=== PATIENT | male | born 1965 | race Two or more races ===

== ENCOUNTER 2018-12-01 20:54 | Emergency (ER) | payer OTHER ==
[~2018-12-01] VITALS: Ht 175.3 cm; Wt 98.2 kg
[2018-12-01] MEDS ORDERED: AMLO5TAB6 PO (21:04)
[2018-12-01 21:36] LABS: BASO # 0.1 10^3/uL (0.0-0.2); BASO % 1.2 % (0.0-1.0); EOS # 0.1 10^3/uL (0.0-0.50); EOS % 2.4 % (0.0-3.0); HEMATOCRIT 39.2 % (42.0-52.0); HEMOGLOBIN 12.9 g/dl (13.5-17.5); LYMPH # 1.7 10^3/uL (1.5-4.5); LYMPH % 35.2 % (24.0-44.0); MEAN CORPUSCULAR HEMOGLOBIN 27.4 pg (27.0-33.0); MEAN CORPUSCULAR HGB CONC 32.9 g/dl (32.0-36.5); MEAN CORPUSCULAR VOLUME 83.4 fl (80.0-96.0); MONO # 0.6 10^3/uL (0.0-0.8); MONO % 11.4 % (0.0-5.0); NEUTROPHILS # 2.4 10^3/uL (1.8-7.7); NEUTROPHILS % 49.4 % (36.0-66.0); PLATELET COUNT, AUTOMATED 189 10^3/uL (150-450); WHITE BLOOD COUNT 4.9 10^3/uL (4.0-10.0)
[2018-12-01 22:02] LABS: BLOOD UREA NITROGEN 16 MG/DL (7-18); CALCIUM LEVEL 7.9 MG/DL (8.5-10.1); CARBON DIOXIDE LEVEL 24 MEQ/L (21-32); CHLORIDE LEVEL 107 MEQ/L (98-107); CK-MB VALUE MASS 1.4 NG/ML (<3.6); CPK CREATINE PHOSPHOKINASE 160 U/L (39-308); CREATININE FOR GFR 1.21 MG/DL (0.70-1.30); GLOMERULAR FILTRATION RATE > 60.0 (>56); GLUCOSE, FASTING 123 MG/DL (70-100); MB/CK RELATIVE INDEX 0.88 (< OR =4); POTASSIUM SERUM 3.6 MEQ/L (3.5-5.1); SODIUM LEVEL 140 MEQ/L (136-145); TROPONIN I < 0.02 NG/ML (< 0.10)
[2018-12-01] MEDS ORDERED: NS 1,000 ML IV ONE (22:45)
[2018-12-01] MEDS ORDERED: KETOROLAC 30 MG/ML VIAL (J1885) IV ONE (22:45)
[2018-12-02 00:30] VITALS: BP 128/68
--- NOTE | 2018-12-02 09:09 | REP ---
Portable chest x-ray: Single view. History: Chest pain. Findings: The lungs are well inflated and clear. Heart size is normal. The aorta is tortuous. Pulmonary vasculature is not increased. EKG monitoring electrodes overlie the chest. There is moderate osteoarthritic change at the glenohumeral articulations bilaterally. Impression: No active cardiopulmonary disease. Electronically Signed by Smith Jones MD 12/02/2018 09:01 A
--- NOTE | 2018-12-04 16:24 | ECGEPIP ---
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
== END 2018-12-02 00:50 | disposition home or self-care (01) ==
LOC: M ED 20:54
DX: R07.89 Other chest pain (principal); R42 Dizziness and giddiness; R06.02 Shortness of breath; I10 Essential (primary) hypertension; Z79.899 Other long term (current) drug therapy
CPT/HCPCS: 36415; 71045; 80048; 82550; 82553; 84484; 85025; 85379; 93005; 93041; 94760; 96361; 96374; 99285; J1885

== ENCOUNTER → 2020-08-29 | Outpatient (CLI) | payer OTHER ==
[~2020-08-29] MED LIST: AMLO1TAB24 PO
--- NOTE | 2020-09-01 07:38 | REP ---
INDICATION: ? ANEURYSM COMPARISON: None TECHNIQUE: Axial noncontrast images from the thoracic inlet to the upper abdomen with coronal and sagittal reformations. This CT examination was performed using the following dose reduction techniques: Automated exposure control, adjustment of mA and/or kv according to the patient's size, and use of iterative reconstruction technique. FINDINGS: The bilateral lung meyer are relatively well aerated, symmetric and essentially clear. Minimal age-related scarring suggested at the bases. There is a 4 mm subpleural nodule along the anterior margin of the right middle lobe (series 201, image 66) which is likely small chronic scar. No acute consolidation, mass, pleural effusion, or pneumothorax. Tracheobronchial tree is patent. No obvious adenopathy noted although evaluation is limited by the lack of intravenous contrast. Ascending thoracic aorta measures 3.5 cm maximal diameter and tapers through the aortic arch and descending thoracic aorta 2 approximately 2.2 cm diameter before traversing the diaphragmatic hiatus. No significant atherosclerotic changes to the aorta or coronary arteries. No cardiomegaly or pericardial effusion. Limited upper abdomen demonstrates normal bilateral adrenal glands. Surrounding musculoskeletal structures are intact and without acute osseous abnormality. IMPRESSION: 1. Ascending thoracic aorta measuring max 3.5 cm diameter tapering to normal through the descending thoracic aorta measuring 2.2 cm maximal diameter. No associated atherosclerotic changes noted. 2. Minimal presumed chronic age-related changes. Small 4 mm subpleural nodule along the anterior right middle lobe likely insignificant. No prior examinations are available for comparison and high risk patients may warrant 12 month follow-up. <Electronically signed by Guru Wolfe > 09/01/20 [id number]
== END ==
LOC: M RAD 15:01
PROVIDERS: ATTEND Family Medicine
DX: I10 Essential (primary) hypertension (principal); K21.9 Gastro-esophageal reflux disease without esophagitis; E78.5 Hyperlipidemia, unspecified; N52.9 Male erectile dysfunction, unspecified; E66.9 Obesity, unspecified; G47.33 Obstructive sleep apnea (adult) (pediatric); F43.10 Post-traumatic stress disorder, unspecified; Z72.0 Tobacco use; R10.9 Unspecified abdominal pain; M19.90 Unspecified osteoarthritis, unspecified site

== ENCOUNTER 2020-11-25 18:37 | Emergency (ER) | payer OTHER ==
[~2020-11-25] VITALS: Ht 175.3 cm; Wt 89.8 kg
[2020-11-25 18:37] VITALS: BP 141/90
== END 2020-11-25 22:13 | disposition left against medical advice (07) ==
LOC: M ED 18:37
DX: Z53.21 Procedure and treatment not carried out due to patient leaving prior to being seen by health care provider (principal)

== ENCOUNTER → 2020-11-26 | Outpatient (CLI) | payer SELFPAY | LOC: M LABSMTC 13:05 | PROVIDERS: ATTEND Pediatrics | DX: Z11.52 Encounter for screening for COVID-19 (principal) ==

== ENCOUNTER 2020-11-27 12:23 | Inpatient (IN) | payer OTHER ==
[~2020-11-27] VITALS: Ht 175.3 cm; Wt 91.6 kg
--- NOTE | 2020-11-27 12:58 | REP ---
INDICATION: Altered Mental Status COMPARISON: None. TECHNIQUE: Axial noncontrast images from the skull base to the vertex with coronal reformations. This CT examination was performed using the following dose reduction techniques: Automated exposure control, adjustment of mA and/or kv according to the patient's size, and use of iterative reconstruction technique. FINDINGS: The ventricles, sulci, and cisterns are normal in position and appearance. Fowler-white differentiation is maintained. No acute intracranial hemorrhage, mass/mass effect, pathology or trauma/injury. No evidence for acute infarction. No extra-axial fluid collection. Calvarium is intact. Paranasal sinuses and mastoid air cells are clear. IMPRESSION: Normal noncontrast head CT. No evidence for acute intracranial pathology or trauma/injury. <Electronically signed by Guru Wolfe > 11/27/20 [id number]
[2020-11-27 13:13] LABS: BASO % 0.9 % (0.0-1.0); EOS # 0.1 10^3/uL (0.0-0.5); EOS % 1.1 % (0.0-3.0); HEMATOCRIT 42.1 % (42.0-52.0); HEMOGLOBIN 13.7 g/dl (13.5-17.5); LYMPH # 0.9 10^3/uL (1.5-5.0); LYMPH % 19.5 % (24.0-44.0); MEAN CORPUSCULAR HEMOGLOBIN 27.3 pg (27.0-33.0); MEAN CORPUSCULAR HGB CONC 32.5 g/dl (32.0-36.5); MEAN CORPUSCULAR VOLUME 83.9 fl (80.0-96.0); MONO # 0.5 10^3/uL (0.0-0.8); MONO % 11.3 % (2.0-8.0); NEUTROPHILS # 2.9 10^3/uL (1.5-8.5); PLATELET COUNT, AUTOMATED 162 10^3/uL (150-450); RED BLOOD COUNT 5.02 10^6/uL (4.30-6.10); WHITE BLOOD COUNT 4.4 10^3/uL (4.0-10.0)
[2020-11-27 13:35] LABS: OSMOLALITY SERUM 284 MOSM/KG (275-295)
[2020-11-27 13:42] LABS: ALBUMIN 3.8 GM/DL (3.2-5.2); ALT/SGPT 55 U/L (12-78); BILIRUBIN,DIRECT 0.3 MG/DL (0.0-0.2); BILIRUBIN,TOTAL 1.2 MG/DL (0.2-1.0); BLOOD UREA NITROGEN 12 MG/DL (7-18); CALCIUM LEVEL 9.1 MG/DL (8.5-10.1); CARBON DIOXIDE LEVEL 25 MEQ/L (21-32); CHLORIDE LEVEL 103 MEQ/L (98-107); CK-MB VALUE MASS 1.1 NG/ML (<3.6); CPK CREATINE PHOSPHOKINASE 192 U/L (39-308); CREATININE FOR GFR 1.18 MG/DL (0.70-1.30); GLOMERULAR FILTRATION RATE > 60.0 (>56); GLUCOSE, FASTING 132 MG/DL (70-100); MB/CK RELATIVE INDEX 0.57 (< OR =4); POTASSIUM SERUM 3.8 MEQ/L (3.5-5.1); SODIUM LEVEL 139 MEQ/L (136-145); THYROID STIMULATING HORMONE 0.978 uIU/ML (0.358-3.740); TOTAL PROTEIN 7.5 GM/DL (6.4-8.2); TROPONIN I < 0.02 NG/ML (< 0.10)
--- NOTE | 2020-11-27 13:49 | REP ---
INDICATION: weakness. COMPARISON: 12/01/2018. TECHNIQUE: Single portable AP view of the chest was performed. FINDINGS: There is no acute infiltrate or pulmonary edema. Lungs are clear. The heart is not significantly enlarged. The mediastinal silhouette is unchanged. The visualized osseous structures are intact. IMPRESSION: No acute pulmonary disease. <Electronically signed by John Fowler > 11/27/20 [id number]
--- NOTE | 2020-11-27 15:03 | HPEPDOC ---
[facility] Medical History & Physical Date of Admission Nov 27, 2020 Date of Service: Nov 27, 2020 History and Physical CHIEF COMPLAINT: numbness, weakness HISTORY OF PRESENT ILLNESS: 55-year-old male with no past medical history, presents for a 3 day history of weakness and numbness. He describes right upper extremity weakness, and bilateral lower extremity weakness. He also notes bilateral lower extremity numbness, left greater than right, and bilateral upper extremity numbness. He denies chest pain, shortness of breath, abdominal pain, nausea, vomiting, diarrhea, headaches or depressed mood. He has not received his COVID-19 vaccination. PAST MEDICAL HISTORY: Denies PAST SURGICAL HISTORY: Denies SOCIAL HISTORY: Reviewed and noncontributory. He denies nicotine abuse, alcohol abuse and illicit drug use. FAMILY HISTORY: Father at 82 with past medical history of hypertension, diabetes, possibly coronary artery disease He does not know his mother very well but states from what he knows, she does no t have any medical history. ALLERGIES: Please see below. REVIEW OF SYSTEMS: Negative except as per HPI. HOME MEDICATIONS: Please see below. PHYSICAL EXAMINATION: VITAL SIGNS: See below General: NAD, lying comfortably in bed HEENT: NC/AT, EOMI, PERRL Lungs: CTA B/L Heart: +S1S2, RRR Abd: soft, NT, +BS Ext: no edema psych: AAOx3 Neuro: strength 5/5 throughout, diminished sensation b/l LE L>R, diminished sensation b/l UE L>R LABORATORY DATA: See below. MICROBIOLOGY: Please see below. A/P: 55 year old male presents for 3 day history of weakness and numbness. #focal neurologic deficits - MRA/MRI pending - check carotid dopplers - echocardiogram #DVT prophylaxis - mechanical Vital Signs Vital Signs Date Time Temp Pulse Resp B/P (MAP) Pulse Ox O2 Delivery O2 Flow Rate FiO2 11/27/20 12:33 11/27/20 12:24 98.9 107 20 100 Room Air Laboratory Data Labs 24H Laboratory Tests 2 11/27/20 12:52: Immature Granulocyte % (Auto) 0.2, Neutrophils (%) (Auto) 67.0H, Lymphocytes (%) (Auto) 19.5L, Monocytes (%) (Auto) 11.3H, Eosinophils (%) (Auto) 1.1, Basophils (%) (Auto) 0.9, Neutrophils # (Auto) 2.9, Lymphocytes # (Auto) 0.9L, Monocytes # (Auto) 0.5, Eosinophils # (Auto) 0.1, Basophils # (Auto) 0.0, Nucleated Red Blood Cells % (auto) 0.0, Anion Gap 11, Glomerular Filtration Rate > 60.0, Osmolality 284, Calcium Level 9.1, Total Bilirubin 1.2H, Direct Bilirubin 0.3H, Aspartate Amino Transf (AST/SGOT) 50H, Alanine Aminotransferase (ALT/SGPT) 55, Alkaline Phosphatase 72, Ammonia 26, Total Creatine Kinase 192, Creatine Kinase MB 1.1, Creatine Kinase MB Relative Index 0.57, Troponin I < 0.02, Total Protein 7.5, Albumin 3.8, Albumin/Globulin Ratio 1.0, Thyroid Stimulating Hormone (TSH) 0.978 11/27/20 12:55: Bedside Glucose (Misc Panel) 142H 11/27/20 14:23: CBC/BMP Laboratory Tests 11/27/20 12:52 Home Medications No Active Prescriptions or Reported Meds Allergies Coded Allergies: No Known Allergies (Unverified , 12/01/18) A-FIB/CHADSVASC A-FIB History Current/History of A-Fib/PAF?: No AUBRIE CALIX MD Nov 27, 2020 15:03
[2020-11-27 15:10] LABS: RSV AMPLIFICATION NEGATIVE (NEGATIVE)
--- NOTE | 2020-11-27 16:58 | REP ---
INDICATION: CVA. COMPARISON: Comparison is made with today's head CT study.. TECHNIQUE: Axial and sagittal imaging planes are utilized for T1 and T2-weighted scans. Sequences include spin-echo, fast spin echo, FLAIR, and diffusion weighted sequences. FINDINGS: No bony calvarial lesion is seen. Craniocervical junction and upper cervical cord are normal in appearance. There is no MR evidence of significant paranasal sinus disease. No intraorbital abnormality is seen. Diffusion-weighted scans show no evidence of restricted diffusion to suggest acute ischemia. There is no evidence of intracranial hemorrhage. No mass lesion is seen. FLAIR and turbo spin echo T2 weighted scans demonstrate multifocal subcortical and periventricular white matter T2 hyperintensities. These are nonspecific. Small-vessel atherosclerotic changes are most likely. The can be associated with migraine and demyelinating disease as well. Study is otherwise unremarkable. IMPRESSION: Multifocal small Melva ventricular and subcortical white matter T2 hyperintense foci consistent with small vessel changes but nonspecific. Otherwise negative. No acute intracranial lesion. <Electronically signed by Joseph Jones > 11/27/20 [id number]
--- NOTE | 2020-11-27 17:00 | REP ---
INDICATION: CVA. COMPARISON: None. TECHNIQUE: 3-D [id number] MR angiography of the brain is acquired in the usual fashion and maximal intensity projection images were generated in rotational format about the vertical and horizontal axes. In addition, source axial T1-weighted images are viewed in cine mode. FINDINGS: The distal vertebral arteries are patent, right slightly smaller than left.. Basilar artery is a little tortuous but widely patent. The posterior cerebral and superior cerebellar vessels are normal and symmetric. The distal internal carotid arteries are unremarkable. Anterior and middle cerebral arteries appear intact. There is no visible estevez aneurysm or arteriovenous malformation. IMPRESSION: Unremarkable MR angiography the brain. <Electronically signed by Joseph Jones > 11/27/20 [id number]
--- NOTE | 2020-11-27 17:51 | REP ---
INDICATION: cva/tia COMPARISON: None. TECHNIQUE: Fowler scale and color Doppler evaluation using linear high frequency transducer Findings: FINDINGS: Two-dimensional fowler scale and color images demonstrate normal arterial lumen with laminar flow and no appreciable narrowing. Color Doppler interrogation demonstrates normal arterial wave patterns and velocities with no significant spectral broadening. Normal flow direction is appreciated in the bilateral vertebral arteries. ICA peak systolic velocity: Right 61 cm/s; Left 54 cm/s ICA diastolic velocity: Right 25 cm/s; Left 23 cm/s ECA peak systolic velocity: Right 52 cm/s; Left 72 cm/s CCA peak systolic velocity: Right 83 cm/s; Left 69 cm/s ICA/CCA ratio: Right 0.73 cm/s; Left 0.78 cm/s IMPRESSION: No hemodynamically significant areas of narrowing or stenosis appreciated. Based on set standards narrowing falls within the normal/less than 50% range. <Electronically signed by Guru Wolfe > 11/27/20 [id number]
[2020-11-28 00:07] VITALS: BP 137/90
[2020-11-28 04:30] VITALS: BP 125/76
[2020-11-28 04:34] LABS: HEMATOCRIT 38.8 % (42.0-52.0); HEMOGLOBIN 12.5 g/dl (13.5-17.5); MEAN CORPUSCULAR HGB CONC 32.2 g/dl (32.0-36.5); MEAN CORPUSCULAR VOLUME 83.8 fl (80.0-96.0); PLATELET COUNT, AUTOMATED 141 10^3/uL (150-450); RED BLOOD COUNT 4.63 10^6/uL (4.30-6.10); WHITE BLOOD COUNT 4.7 10^3/uL (4.0-10.0)
[2020-11-28 05:11] LABS: ALBUMIN 3.4 GM/DL (3.2-5.2); ALT/SGPT 57 U/L (12-78); BILIRUBIN,TOTAL 0.5 MG/DL (0.2-1.0); BLOOD UREA NITROGEN 13 MG/DL (7-18); CALCIUM LEVEL 8.8 MG/DL (8.5-10.1); CARBON DIOXIDE LEVEL 28 MEQ/L (21-32); CHLORIDE LEVEL 105 MEQ/L (98-107); CREATININE FOR GFR 1.02 MG/DL (0.70-1.30); GLOMERULAR FILTRATION RATE > 60.0 (>56); GLUCOSE, FASTING 119 MG/DL (70-100); POTASSIUM SERUM 3.5 MEQ/L (3.5-5.1); SODIUM LEVEL 139 MEQ/L (136-145); TOTAL PROTEIN 6.9 GM/DL (6.4-8.2)
[2020-11-28 07:40] VITALS: BP 138/78
[2020-11-28 10:12] LABS: TOTAL PROTEIN 7.5 GM/DL (6.4-8.2)
[2020-11-28 10:31] LABS: INR 0.88; PROTHROMBIN TIME 12.1 SECONDS (12.5-14.3)
--- NOTE | 2020-11-28 12:19 | IPNPDOC ---
Text Note Date of Service The patient was seen on 11/28/20. NOTE Subjective: Patient seen and examined at bedside. No acute overnight events reported. Patient states he is feeling better today. He states his lower extremity weakness is improving. He states he is able to walk today without fear of falling down today. He does also note symptoms suspicious for an upper respiratory infection about 5 days ago involving rhinorrhea and sore throat. Objective: VITAL SIGNS: See below General: NAD, sitting comfortably at edge of bed HEENT: NC/AT, EOMI, PERR Lungs: CTA B/L Heart: +S1S2, RRR Abd: soft, NT, +BS Ext: no edema psych: AAOx3 Neuro: strength 5/5 throughout, sensation intact, difficult to illicit patellar reflex LABORATORY DATA: See below. MICROBIOLOGY: Please see below. A/P: 55 year old male presents for 3 day history of weakness and numbness. #focal neurologic deficits - MRA/MRI noted - discussed with neurology - consultation pending - - echocardiogram pending report - pending LP today #DVT prophylaxis - mechanical VS,Fishbone, I+O VS, Fishbone, I+O Laboratory Tests 11/27/20 12:52 11/28/20 03:58 Vital Signs Date Time Temp Pulse Resp B/P (MAP) Pulse Ox O2 Delivery O2 Flow Rate FiO2 11/28/20 07:40 97.8 61 18 138/78 (98) 99 Room Air I&O- Last 24 Hours up to 6 AM 11/28/20 06:00 Intake Total 1200 ml Output Total 1200 ml Balance 0 ml AUBRIE CALIX MD Nov 28, 2020 12:19
[2020-11-28 14:59] VITALS: BP 133/85
--- NOTE | 2020-11-28 16:42 | ECGEPIP ---
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
--- NOTE | 2020-11-28 18:56 | DS.PDOC ---
Discharge Summary General Date of Admission Nov 27, 2020 at 14:01 Date of Discharge 11/28/20 Specialist/Consultants Involve neurology Discharge Summary PROCEDURES PERFORMED DURING STAY: [None]. ADMITTING DIAGNOSES: #weakness DISCHARGE DIAGNOSES: #weakness COMPLICATIONS/CHIEF COMPLAINT: Stroke. HPI/HOSPITAL COURSE: . DISCHARGE MEDICATIONS: Please see below. ALLERGIES: Please see below. PHYSICAL EXAMINATION ON DISCHARGE: VITAL SIGNS: Please see below. General: NAD, sitting comfortably at edge of bed HEENT: NC/AT, EOMI, PERRL Lungs: CTA B/L Heart: +S1S2, RRR Abd: soft, NT, +BS Ext: no edema psych: AAOx3 Neuro: strength 5/5 throughout, sensation intact, difficult to illicit patellar refle LABORATORY DATA: Please see below. ACTIVITY: [As tolerated]. DISPOSITION: Home, Self-Care. DISCHARGE INSTRUCTIONS: 1, Follow up with PCP in 3-5 days. DISCHARGE CONDITION: [Stable]. TIME SPENT ON DISCHARGE: 35 minutes. Vital Signs/I&Os Vital Signs Date Time Temp Pulse Resp B/P (MAP) Pulse Ox O2 Delivery O2 Flow Rate FiO2 11/28/20 14:59 97.4 84 17 133/85 (101) 99 Room Air I&O- Last 24 Hours up to 6 AM 11/28/20 06:00 Intake Total 1200 ml Output Total 1200 ml Balance 0 ml Laboratory Data Labs 24H Laboratory Tests 2 11/28/20 03:58: Nucleated Red Blood Cells % (auto) 0.0, Anion Gap 6L, Glomerular Filtration Rate > 60.0, Calcium Level 8.8, Total Bilirubin 0.5#, Aspartate Amino Transf (AST/SGOT) 48H, Alanine Aminotransferase (ALT/SGPT) 57, Alkaline Phosphatase 87, Total Protein 6.9, Albumin 3.4, Albumin/Globulin Ratio 1.0 11/28/20 09:08: Total Protein (PEP) 7.5, Vitamin B12 Level 1156H 11/28/20 09:58: Prothrombin Time 12.1, Prothromb Time International Ratio 0.88 CBC/BMP Laboratory Tests 11/28/20 03:58 Discharge Medications No Active Prescriptions or Reported Meds Allergies Coded Allergies: No Known Allergies (Unverified , 12/01/18) AUBRIE CALIX MD Nov 28, 2020 18:56
--- NOTE | 2020-11-29 13:22 | CR ---
CONSULTATION DATE: 11/28/2020 REFERRING PHYSICIAN: Dr. Bernardo Osorio REASON FOR CONSULTATION: Numbness, weakness. HISTORY OF PRESENT ILLNESS: Patient is a 55-year-old man who was admitted at [facility] due to history of numbness and weakness of arms and legs for the past couple of days. Patient states that over last few days he has had episodes of blurred vision and felt sharp chest pain. He was working in his closet at home, when he felt tingling of his forearms and legs. He felt subjective weakness of his legs and felt that he was leaning to right side when walking. He came to [facility] and was admitted for further workup. His MRI scan of brain was reviewed and showed mild small-vessel ischemic disease of brain. MRA brain was unremarkable. Carotid ultrasound showed less than 50% bilateral carotid artery stenosis. Patient states that he has been feeling much better since last night. He has been walking around in the hallway without any difficulty. We had planned to do spinal tap due to concern for Guillain-[place] syndrome (GBS), but patient refused, as he got scared of risks of spinal tap. He stated that he is completely back to his normal self and would prefer to go home. He denies any headaches, neck pain, back pain, dysphagia, dysarthria, diplopia, urinary incontinence, shortness of breath. He states that he felt irritation of his throat a few days ago but did not have any sinus/cold-like symptoms. He denies any recent vaccinations. He did not have COVID vaccine. MEDICAL HISTORY: None. SOCIAL HISTORY: He denies smoking, alcohol, or illicit drugs. FAMILY HISTORY: Father has hypertension, diabetes, and coronary artery disease. He states that he does not know much about his mother's medical problems, but she is healthy. ALLERGIES: None. REVIEW OF SYSTEMS: All systems were reviewed and found to be noncontributory. Except as mentioned in history of present illness (HPI). HOME MEDICATIONS: None. PHYSICAL EXAMINATION: Temperature 98.9, pulse 107, respiratory rate 20, 100% saturation on room air. HEART: Regular rate and rhythm. LUNGS: Clear to auscultation. ABDOMEN: Soft, nontender, nondistended. No pedal edema. No musculoskeletal abnormalities. No rash. No signs of meningeal irritation. Patient is awake, alert, oriented to place, person, and time. Normal speech, comprehension, and repetition. Extraocular muscles are intact. No facial weakness. Tongue and uvula are midline. No dysmetria or tremor. Visual meyer are full to confrontation. Strength 5/5 in all four extremities. Deep tendon reflexes are 2+ throughout. Normal sensation. Gait is normal. Patient is able to do tandem walking and walk on his heels and goes. ASSESSMENT: 1. Paresthesia of the body, possibly induced by viral illness. Patient declined spinal tap. 2. Minimal small-vessel ischemic disease of brain. PLAN: 1. Patient declined spinal tap. He stated that he feels back to normal self completely. He was advised to return to the emergency department if his symptoms recur or worsen. 2. Follow with our office in 2 weeks after hospital discharge.
--- NOTE | 2020-12-01 08:45 | ECHO ---
ECHOCARDIOGRAM DATE OF PROCEDURE: 11/28/2020 Age: 55 Gender: Male Height: Weight: REFERRING PHYSICIAN: Roxi Hargrove MD. PATIENT LOCATION: Room 3215. REASON FOR STUDY: Cerebrovascular accident (CVA). MEASUREMENTS: IVS 1.2 cm LV 3.9 cm LVPW 1.2 cm LA 3.4 cm Aorta 3.9 cm IVC 1.6 cm DOPPLER MEASUREMENT Peak velocity across the aortic valve 1.5 m/s Peak velocity across the LVOT 1.1 m/s Mitral E 0.71 Mitral A 0.72 with a ratio of less than 1.0 2D COMMENTS: 1. Normal left ventricular size, wall thickness, and normal global left ventricular systolic function. The estimated left ventricular systolic ejection fraction is 60% to 65%. 2. Normal left atrium. Normal right atrium and right ventricle. 3. The atrial septum appeared to be normal without evidence of defect or shunt. 4. Mildly dilated aortic root at 3.9 cm. 5. No pericardial effusion seen. 6. Mildly calcified aortic valve with normal leaflet excursion. Mildly calcified mitral annulus with normal anterior mitral valve leaflet motion. Normal tricuspid valve and pulmonic valve. The proximal pulmonary artery branches were not well visualized. 7. The inferior vena cava was normal in size, central venous pressure is most likely normal. 8. Bubble study done with agitated normal saline was negative for passage of bubbles from the right heart chambers to the left heart chambers. DOPPLER: Only trace aortic regurgitation detected. There are features consistent with probably grade 1 left ventricular diastolic dysfunction. IMPRESSION: 1. Normal global left ventricular systolic function. There are some features of grade 1 left ventricular diastolic dysfunction manifested by abnormal relaxation. 2. Aortic valve sclerosis with trace aortic regurgitation, but no aortic stenosis. 3. Isolated mitral annulus calcification. No evidence of mitral regurgitation or mitral stenosis. 4. Mildly dilated aortic root at 3.9 cm. 5. Negative bubble study for intracardiac shunt. 6. Global longitudinal strain was calculated at -27%.
== END 2020-11-28 17:59 | disposition home or self-care (01) | DRG 948 ==
LOC: M ED 12:23 → M ED INP 14:01 → M PCU 23:35 → M MSPAV 11-28 14:47
PROVIDERS: ADMIT Internal Medicine; ATTEND Internal Medicine
DX: R53.1 Weakness (principal); R20.2 Paresthesia of skin